=== PATIENT | female | born 1985 | race Caucasian/White ===

== ENCOUNTER 2025-05-05 06:13 | Day surgery (SDC) | payer OTHER, SELFPAY ==
[2025-05-05] VITALS (8 sets, daily range): BP systolic 105–124; BP diastolic 65–73; BMI 23.9
[2025-05-05] MEDS: TYLENOL 1000 MG PO (10:47)
[2025-05-05] MEDS: CELEBREX 200 MG PO (10:47)
[2025-05-05] MEDS: NORMOSOL-R/PLASMALYTE-A 1000 IV (10:48)
== END 2025-05-05 13:28 | disposition home or self-care (01) ==
LOC: SDS 06:13
PROVIDERS: ATTENDING PHYSICIAN Specialist
DX: S83.281A Other tear of lateral meniscus, current injury, right knee, initial encounter (principal); X58.XXXA Exposure to other specified factors, initial encounter
CPT/HCPCS: 29881